=== PATIENT | female | born 1990 | race Caucasian/White ===

== ENCOUNTER 2022-03-27 17:22 | Observation (INO) ==
[2022-03-27] MEDS ORDERED: IOPAMIDOL 100 ML BOTTLE IV ONE (17:23)
[2022-03-27] MEDS ORDERED: 0.9 % SODIUM CHLORIDE 1,000 ML IV ONE (17:29)
--- NOTE | 2022-03-27 17:29 | Emergency Department Note ---
Abdominal Pain HPI General Chief Complaint: Abdominal Pain Stated Complaint: Stomach Pain Time Seen by Provider: 03/27/22 17:28 Source: patient Mode of arrival: ambulatory Limitations: no limitations History of Present Illness HPI Narrative: Narrative: Patient is a 32-year-old female that presents to the emergency department today with complaint of sharp stabbing pain to the right lower quadrant that started this morning at 7 AM and woke her up from sleep. She thought she may have needed to have a bowel movement as she typically has a bowel movement every other day. She took some laxatives and had a small brown bowel movement that was soft. She does not feel that she is constipated as she continued to have pain. She has felt mild nausea which she feels is aggravated with the increased pain. Pain is aggravated with ambulating, and jumping. She felt very sweaty at home but is not sure if she has had a fever. She has had some loss of appetite today. She denies any chest pain, shortness of breath, cough, vomiting, melena, hematochezia, or diarrhea. She currently has a Mirena IUD and has not had a menstrual cycle since the IUD was placed. She denies any vaginal discharge or dyspareunia. She is and in a monogamous relationship. Related Data Home Medications Medication Instructions Recorded Confirmed buspirone 10 mg tablet 10 mg PO BID 11/15/21 11/15/21 fluoxetine 40 mg capsule (Prozac) 40 mg PO QDAY 11/15/21 11/15/21 Allergies Allergy/AdvReac Type Severity Reaction Status Date / Time Erythromycin Base AdvReac Unknown Unknown Verified 03/27/22 17:27 Review of Systems ROS ROS Narrative: Narrative: All systems ED: reviewed and negative except as stated. [facility] Narrative Patient History Narrative: Narrative: Medical/Surgical/Family History All Active Problems (Updated 03/27/22 @ 18:58 by SHELBI Brown) Acute appendicitis (Acute) Urinary tract infection (Acute) Dysuria (Acute) Cholelithiasis and cholecystitis with obstruction (Acute) Abdominal pain (Acute) Back pain (Chronic) Depression (Chronic) Anemia (Chronic) Bronchitis (Chronic) Medical History (Updated 03/27/22 @ 18:58 by SHELBI Brown) Anemia Back pain Bronchitis Depression Dysuria Urinary tract infection Surgical History History of laparoscopic cholecystectomy 05/08/2020 Family History Mother Diabetes Stroke Family/Other Hypertension Breast cancer Grandmother Cervical cancer Social History Smoking Status: Never smoker Alcohol Intake Frequency: holiday/special occasion only Substance Use: does not use Exam Narrative Narrative: Narrative: General Limitations: no limitations General appearance: Present alert and in no apparent distress Head Head: Present atraumatic, normocephalic and normal inspection Eye Eye: Present normal appearance; Absent scleral icterus ENT ENT: Present normal oropharynx and mucous membranes moist Neck Neck: Present full ROM Chest Chest: Present symmetric chest wall rise Respiratory Respiratory: Present normal lung sounds bilaterally; Absent respiratory distress, rales/crackles or accessory muscle use Cardiovascular Cardiovascular: Present normal rhythm, tachycardia and normal heart sounds Adbominal Abdominal: Present soft, tenderness (Right lower quadrant abdominal tenderness with palpation.), normal bowel sounds, psoas sign, obturator sign, heel tap sign and tenderness at McBurney's Point; Absent distention, rebound, Dang's sign, mass or hernia Extremities Extremities: Present normal inspection and normal capillary refill Neurological Neurological: Present alert and oriented X3 Psychiatric Psychiatric: Present anxious Skin Skin: Present warm (WNL), dry and normal color Course Vital Signs Vital signs: Vital Signs Temperature 98.0 F 03/27/22 17:25 Pulse Rate 123 H 03/27/22 17:25 Respiratory Rate 16 03/27/22 17:25 Blood Pressure 121/74 03/27/22 17:25 Pulse Oximetry (%) 97 03/27/22 17:25 Oxygen Delivery Method 03/27/22 17:25 Temperature 98.0 F 03/27/22 17:25 Pulse Rate 93 H 03/27/22 19:07 Respiratory Rate 16 03/27/22 17:25 Blood Pressure 115/88 03/27/22 18:46 Pulse Oximetry (%) 95 03/27/22 19:07 Oxygen Delivery Method 03/27/22 17:25 [facility] MDM Narrative Medical decision making narrative: Narrative: 32-year-old female presented the emergency department with right lower quadrant abdominal pain that started this morning at 7 AM and woke her up. She has findings on examination of acute appendicitis started today and proceeded with obtaining a CBC, CMP, noylg-co-kzii creatinine, and elected to proceed with abdominal and pelvis CT scan with contrast. An IV was started and 1 L normal sa line was being administered. She did have tachycardia here on arrival to the emergency department but is afebrile. Patient had negative hCG test. She was given 1 mg of Dilaudid and 4 mg of ondansetron today prior to her CT scan. The CT was read by direct radiology that shows appendix that is distended with periappendiceal fat stranding. The appendix measures up to 9 mm. Acute appendicitis without complication is noted. Patient's white count had returned and is currently 18.9. Lactic acid blood culture ordered as well as Zosyn 3.375 IV dose to be administered. I was able to talk with general surgeon today, Dr. Nleson who is on-call for [facility]. Dr. Nelson agrees to admit patient for observation and will plan on giving antibiotic and likely surgery in the morning. Patient's tachycardia had started to resolve and after 1 L normal saline pulse was 93. Patient's pain was well controlled. She will be admitted to [facility] observation in [facility]. Lab Data Result diagrams: 03/27/22 17:40 03/27/22 17:40 Labs: Lab Results 03/27/22 03/27/22 03/27/22 Range/Units 17:40 17:40 17:48 WBC 18.9 H (4.5-11.0) K/mcL RBC 4.79 (3.59-5.38) M/mcL Hgb 14.5 (11.2-15.7) g/dL Hct 41.1 (34.1-44.9) % MCV 85.8 (80.0-100.0) fL MCH 30.3 (26.0-34.0) pg MCHC 35.3 (31.0-36.0) g/dL RDW 12.3 (11.5-14.5) % Plt Count 557 H (140-440) K/mcL MPV 8.5 L (8.8-12.5) fL Immature Gran % (Auto) 0.5 (0.0-0.5) % Neut % (Auto) 90.9 H (38.0-78.0) % Lymph % (Auto) 4.7 L (15.5-49.0) % [place] % (Auto) 3.6 (1.0-12.0) % Eos % (Auto) 0 (0.0-7.0) % Baso % (Auto) 0.3 (0.0-2.0) % Lymph # (Auto) 0.88 L (1.50-4.80) K/mcL [place] # (Auto) 0.67 (0.10-0.90) K/mcL Eos # (Auto) 0 (0.00-0.70) K/mcL Baso # (Auto) 0.06 (0.00-0.30) K/mcL Immature Gran # 0.09 H (0.00-0.05) K/mcl Absolute Neutrophils 17.15 H (1.80-8.00) K/mcL Sodium 130 L (133-145) mmol/L Potassium 3.5 (3.3-5.1) mmol/L Chloride 97 (96-108) mmol/L Carbon Dioxide 20 L (22-30) mmol/L Anion Gap 13.0 (8.0-16.0) BUN 5 L (6-20) mg/dL Creatinine 0.5 L (0.6-1.1) mg/dL POC Creatinine 0.5 L (0.6-1.2) GFR Calculation 129 Glucose 128 H (70-105) mg/dL Calcium 8.9 (8.6-10.4) mg/dL Total Bilirubin 0.7 (0.1-1.0) mg/dL AST 17 (<32) U/L ALT 18 (<40) U/L Alkaline Phosphatase 132 H (39-117) U/L Total Protein 7.9 (5.9-8.4) gm/dL Albumin 4.8 (3.2-5.2) gm/dL Globulin 3.1 (2.2-3.7) gm/dL Albumin/Globulin Ratio 1.5 (1.0-2.3) ED POC Tests ED POC Tests: HCG POC Results Negative Discharge Plan Patient/Caregiver Discharge Instructions Pt seen by ROAD PACKER OPERATOR/PA only: Yes Clinical Impression: Acute appendicitis Qualifiers: Acute appendicitis type: unspecified acute appendicitis type Qualified Code(s): K35.80 - Unspecified acute appendicitis Patient Disposition: Xfer As Outpt/Obs ([facility]) Follow up with: Otto Medina ARNP [Nurse Practitioner] - Prescriptions: No Action fluoxetine [Prozac] 40 mg capsule 40 mg PO QDAY buspirone 10 mg tablet 10 mg PO BID
[2022-03-27] MEDS ORDERED: HYDROmorphone 1 MG/ML SYRINGE IV ONE (17:46)
[2022-03-27] MEDS ORDERED: ONDANSETRON 4 MG/2 ML VIAL IV ONE (17:46)
[2022-03-27 18:14] LABS: Basophils # (Auto) 0.06 K/mcL (0.00-0.30); Basophils % (Auto) 0.3 % (0.0-2.0); Eosinophils # (Auto) 0 K/mcL (0.00-0.70); Eosinophils % (Auto) 0 % (0.0-7.0); Hematocrit 41.1 % (34.1-44.9); Hemoglobin 14.5 g/dL (11.2-15.7); Lymphocytes # (Auto) 0.88 K/mcL (1.50-4.80); Lymphocytes % (Auto) 4.7 % (15.5-49.0); Mean Cell Volume 85.8 fL (80.0-100.0); Mean Corpuscular HGB Conc 35.3 g/dL (31.0-36.0); Mean Platelet Volume 8.5 fL (8.8-12.5); Monocytes # (Auto) 0.67 K/mcL (0.10-0.90); Monocytes % (Auto) 3.6 % (1.0-12.0); Neutrophils % (Auto) 90.9 % (38.0-78.0); Platelet Count 557 K/mcL (140-440); RBC 4.79 M/mcL (3.59-5.38); Red Cell Distribution Width 12.3 % (11.5-14.5); WBC 18.9 K/mcL (4.5-11.0)
[2022-03-27 18:32] LABS: ALT/SGPT 18 U/L (<40); AST/SGOT 17 U/L (<32); Albumin 4.8 gm/dL (3.2-5.2); Albumin/Globulin Ratio 1.5 (1.0-2.3); Alkaline Phosphatase 132 U/L (39-117); Bilirubin,Total 0.7 mg/dL (0.1-1.0); Blood Urea Nitrogen 5 mg/dL (6-20); Calcium 8.9 mg/dL (8.6-10.4); Carbon Dioxide 20 mmol/L (22-30); Chloride 97 mmol/L (96-108); Globulin 3.1 gm/dL (2.2-3.7); Glomerular Filtration Rate 129; Glucose 128 mg/dL (70-105)
[2022-03-27] MEDS ORDERED: PIPERACILLIN SODIUM/TAZOBACTAM 3.375 GM in DEXTROSE 5% IN WATER 50 ML IV ONE (18:38)
[2022-03-27] MEDS ORDERED: PROMETHAZINE 25 MG/ML VIAL IV PRN (20:10)
[2022-03-27] MEDS ORDERED: PIPERACILLIN SODIUM/TAZOBACTAM 3.375 GM in DEXTROSE 5% IN WATER 50 ML IV SCH (20:15)
--- NOTE | 2022-03-27 20:16 | General Surg History&Physical ---
HPI History of Present Illness Patient information: Note initiated : 03/27/22 at 8:14 pm Service Date, if different from initiated Date: [] Patient: Qian Wing 32 y/o F admitted on 03/27/22 for Stomach Pain. Chief Complaint: [] History of present illness: Ms. Wing is a 32 year old F who was admitted with acute appendicitis. She awakened at 7 AM with mid abdominal pain followed by nausea vomiting fever and chills. This continued throughout the day and the pain localized to the right lower quadrant about 6 PM. She also noted discomfort with moving her right leg. She was seen in the emergency room and was noted to have leukocytosis of 18,700. CT of the abdomen shows dilated edematous appendix with Appendiceal tissue fluid. Patient is admitted with acute appendicitis. She will be treated with antibiotics and will have surgery in the morning. Review of Systems All systems: reviewed and no additional remarkable complaints except as stated PFSH PFSH All Active Problems Acute appendicitis (Acute) Urinary tract infection (Acute) Dysuria (Acute) Cholelithiasis and cholecystitis with obstruction (Acute) Abdominal pain (Acute) Back pain (Chronic) Depression (Chronic) Anemia (Chronic) Bronchitis (Chronic) Medical History Anemia Back pain Bronchitis Depression Dysuria Urinary tract infection Surgical History History of laparoscopic cholecystectomy 05/08/2020 Family History Mother Diabetes Stroke Family/Other Hypertension Breast cancer Grandmother Cervical cancer Social History marital status: smoking status: Never smoker alcohol intake frequency: holiday/special occasion only substance use type: does not use MEDS/ALLERGIES Home Medications and Allergies Allergies Allergy/AdvReac Type Severity Reaction Status Date / Time Erythromycin Base AdvReac Unknown Unknown Verified 03/27/22 17:27 Physical Examination Vital Signs Vital signs: Temp Pulse Resp BP Pulse Ox O2 Del Method 98.0 F 103 H 16 105/67 97 03/27/22 17:25 03/27/22 20:01 03/27/22 17:25 03/27/22 20:01 03/27/22 20:01 03/27/22 17:25 General physical appearance General physical exam: well developed, well nourished, moderate distress and moderate pain Eyes Eye exam: PERRL and normal ocular movement ENT ENT exam: normal mucosa, no hearing loss and no congestion Head Head exam IM: Present atraumatic, normal inspection and normocephalic Neck Neck exam: no masses, no bruits, trachea midline, no lymphadenopathy and no venous distension Cardiovascular Cardiovascular exam IM: Present normal rate and rhythm, RRR, +S1 and +S2; Absent diastolic murmur, JVD or systolic murmur Respiratory Respiratory exam: normal expansion, normal respiratory effort and clear to auscultation Abdomen Abdomen: Present tender (Right lower quadrant tenderness with guarding and rebound) Integumentary Integumentary: Present no rash, no growths and no abnormal pigmentation Neurologic Neurologic: Present normal coordination and normal sensation Musculoskeletal Musculoskeletal: Present normal gait and normal posture Psychiatric Psychiatric: Present oriented to time, oriented to person, oriented to place, speech is normal and memory intact Results Labs Result diagrams: 03/28/22 05:11 03/28/22 05:11 Labs: Abnormal lab results 03/27/22 03/27/22 03/27/22 Range/Units 17:40 17:40 17:48 WBC 18.9 H (4.5-11.0) K/mcL Plt Count 557 H (140-440) K/mcL MPV 8.5 L (8.8-12.5) fL Neut % (Auto) 90.9 H (38.0-78.0) % Lymph % (Auto) 4.7 L (15.5-49.0) % Lymph # (Auto) 0.88 L (1.50-4.80) K/mcL Immature Gran # 0.09 H (0.00-0.05) K/mcl Absolute Neutrophils 17.15 H (1.80-8.00) K/mcL POC VBG pCO2 at Temp (41-51) POC VBG pO2 (25-40) POC VBG HCO3 (24-28) POC VBG Total CO2 (25-29) POC Venous O2 Sat (40-70) POC VBG Base Excess (-2-2) Sodium 130 L (133-145) mmol/L Carbon Dioxide 20 L (22-30) mmol/L BUN 5 L (6-20) mg/dL Creatinine 0.5 L (0.6-1.1) mg/dL POC Creatinine 0.5 L (0.6-1.2) Glucose 128 H (70-105) mg/dL Alkaline Phosphatase 132 H (39-117) U/L 03/27/22 Range/Units 19:31 WBC (4.5-11.0) K/mcL Plt Count (140-440) K/mcL MPV (8.8-12.5) fL Neut % (Auto) (38.0-78.0) % Lymph % (Auto) (15.5-49.0) % Lymph # (Auto) (1.50-4.80) K/mcL Immature Gran # (0.00-0.05) K/mcl Absolute Neutrophils (1.80-8.00) K/mcL POC VBG pCO2 at Temp 37.1 L (41-51) POC VBG pO2 47 H (25-40) POC VBG HCO3 22.0 L (24-28) POC VBG Total CO2 23.0 L (25-29) POC Venous O2 Sat 82.0 H (40-70) POC VBG Base Excess -3.0 L (-2-2) Sodium (133-145) mmol/L Carbon Dioxide (22-30) mmol/L BUN (6-20) mg/dL Creatinine (0.6-1.1) mg/dL POC Creatinine (0.6-1.2) Glucose (70-105) mg/dL Alkaline Phosphatase (39-117) U/L Diabetes panel 03/27/22 Range/Units 17:40 Sodium 130 L (133-145) mmol/L Potassium 3.5 (3.3-5.1) mmol/L Chloride 97 (96-108) mmol/L Carbon Dioxide 20 L (22-30) mmol/L BUN 5 L (6-20) mg/dL Creatinine 0.5 L (0.6-1.1) mg/dL Glucose 128 H (70-105) mg/dL Calcium 8.9 (8.6-10.4) mg/dL AST 17 (<32) U/L ALT 18 (<40) U/L Alkaline Phosphatase 132 H (39-117) U/L Total Protein 7.9 (5.9-8.4) gm/dL Albumin 4.8 (3.2-5.2) gm/dL Calcium panel 03/27/22 Range/Units 17:40 Calcium 8.9 (8.6-10.4) mg/dL Albumin 4.8 (3.2-5.2) gm/dL Pituitary panel 03/27/22 Range/Units 17:40 Sodium 130 L (133-145) mmol/L Potassium 3.5 (3.3-5.1) mmol/L Chloride 97 (96-108) mmol/L Carbon Dioxide 20 L (22-30) mmol/L BUN 5 L (6-20) mg/dL Creatinine 0.5 L (0.6-1.1) mg/dL Glucose 128 H (70-105) mg/dL Calcium 8.9 (8.6-10.4) mg/dL Adrenal panel 03/27/22 Range/Units 17:40 Sodium 130 L (133-145) mmol/L Potassium 3.5 (3.3-5.1) mmol/L Chloride 97 (96-108) mmol/L Carbon Dioxide 20 L (22-30) mmol/L BUN 5 L (6-20) mg/dL Creatinine 0.5 L (0.6-1.1) mg/dL Glucose 128 H (70-105) mg/dL Calcium 8.9 (8.6-10.4) mg/dL Total Bilirubin 0.7 (0.1-1.0) mg/dL AST 17 (<32) U/L ALT 18 (<40) U/L Alkaline Phosphatase 132 H (39-117) U/L Total Protein 7.9 (5.9-8.4) gm/dL Albumin 4.8 (3.2-5.2) gm/dL All other labs normal. A/P Assessment and plan (1) Acute appendicitis: Status: Acute Qualifiers: Acute appendicitis type: unspecified acute appendicitis type Qualified Code(s): K35.80 - Unspecified acute appendicitis Plan ZOSYN 3.375GM IV Q6H NPO AFTER MIDNIGHT SCHEDULE APPENDECTOMY TO BE PERFORMED IN THE AM Sepsis Sepsis Identified: No Time Spent With Patient Time: Total time spent is greater than 50% in coordination of care (as documented) at patient's floor/unit and/or counseling patient:
[2022-03-27] MEDS: 0.9 % SODIUM CHLORIDE 1,000 ML IV SCH (20:30)
[2022-03-27] MEDS: ACETAMINOPHEN 1,000 MG/100 ML BAG IV SCH (20:30)
--- NOTE | 2022-03-27 20:42 | Cat Scan Report ---
INDICATION: RLQ abdominal pain. Concern of appendicitis COMPARISON: Previous examination dated 03/06/2020 TECHNIQUE: Axial images were obtained through the abdomen and pelvis. Sagittally and coronally reformatted images. 80 mL Isovue 370 injected intravenously. Oral contrast material was not administered FINDINGS: Examination was initially interpreted by [facility] Lung bases:Negative. No pulmonary parenchymal nodule. No pleural fluid or pericardial fluid Liver:Negative. No focal intrahepatic mass. No focal abnormality. Liver contour is smooth. No evidence for cirrhosis Gallbladder, bilary:Previous cholecystectomy. No dilated bile ducts Spleen:No splenomegaly. Normal enhancement of splenic and portal veins. Pancreas:No pancreatic mass. No peripancreatic abnormality Adrenal glands:Negative Kidneys,ureters,bladder:No solid renal mass. No hydronephrosis. No obstructing or nonobstructing calculi. No hydroureter. No ureteral calculus. No bladder stone. No detectable bladder mass. Gastrointestinal:No detectable colonic mass. There is no diverticulitis. Negative small bowel. No mechanical small bowel obstruction. No bowel wall thickening. No focal abnormality. Negative stomach and duodenum. No focal abnormality. Appendix: The appendix is distended and measures 10 mm in cross-sectional diameter. There is periappendiceal inflammatory change. There is no fluid or abscess. No free air. Appearance is consistent with acute appendicitis without evidence for ruptured appendix Vascular:Negative abdominal aorta. Superior mesenteric artery and celiac trunk are normal. Normal opacification of the inferior mesenteric artery Lymphatic:No retroperitoneal or mesenteric adenopathy Mesentery, peritoneum: No free intraperitoneal fluid. No mesenteric or retroperitoneal mass. No intra-abdominal abscess. Reproductive:Uterus is anteflexed. There is an intrauterine contraceptive device within the uterus. No adnexal mass Musculoskeletal:No lumbar compression fractures. Sacrum and pelvis are negative. No hip fracture. No abdominal wall or inguinal hernia IMPRESSION: 1. Acute appendicitis without evidence for rupture 2. Previous cholecystectomy The exam was performed using radiation dose optimization techniques including, but not limited to, automated exposure control, adjustment of the mA and/or kV according to patient size and use of iterative reconstruction technique. Interpreted and Authenticated by: Glen Triana 03/27/22
[2022-03-27] MEDS: 0.9 % SODIUM CHLORIDE 10 ML SYRINGE IV SCH (21:37)
[2022-03-27] MEDS: PIPERACILLIN SODIUM/TAZOBACTAM 3.375 GM in DEXTROSE 5% IN WATER 50 ML IV SCH (23:41)
[2022-03-27] MEDS: HYDROmorphone 0.5 MG/0.5 ML SYRINGE IV PRN (23:43)
[2022-03-28] MEDS: ACETAMINOPHEN 1,000 MG/100 ML BAG IV SCH ×3 (02:18→14:50)
[2022-03-28] MEDS: 0.9 % SODIUM CHLORIDE 10 ML SYRINGE IV SCH ×3 (05:12→22:15)
[2022-03-28] MEDS: 0.9 % SODIUM CHLORIDE 1,000 ML IV SCH ×4 (05:17→22:14)
[2022-03-28 05:50] LABS: Basophils # (Auto) 0.09 K/mcL (0.00-0.30); Basophils % (Auto) 0.8 % (0.0-2.0); Eosinophils # (Auto) 0.11 K/mcL (0.00-0.70); Hematocrit 35.8 % (34.1-44.9); Lymphocytes # (Auto) 2.82 K/mcL (1.50-4.80); Lymphocytes % (Auto) 24.8 % (15.5-49.0); Mean Cell Volume 89.7 fL (80.0-100.0); Mean Corpuscular HGB Conc 33.5 g/dL (31.0-36.0); Mean Platelet Volume 8.4 fL (8.8-12.5); Monocytes # (Auto) 0.77 K/mcL (0.10-0.90); Monocytes % (Auto) 6.8 % (1.0-12.0); Neutrophils % (Auto) 66.4 % (38.0-78.0); Platelet Count 428 K/mcL (140-440); RBC 3.99 M/mcL (3.59-5.38); Red Cell Distribution Width 12.6 % (11.5-14.5); WBC 11.4 K/mcL (4.5-11.0)
[2022-03-28] MEDS: PIPERACILLIN SODIUM/TAZOBACTAM 3.375 GM in DEXTROSE 5% IN WATER 50 ML IV SCH ×3 (05:53→17:53)
[2022-03-28 06:00] LABS: ALT/SGPT 19 U/L (<40); AST/SGOT 17 U/L (<32); Albumin 3.5 gm/dL (3.2-5.2); Albumin/Globulin Ratio 1.3 (1.0-2.3); Alkaline Phosphatase 94 U/L (39-117); Bilirubin,Direct 0.2 mg/dL (<0.3); Bilirubin,Total 0.9 mg/dL (0.1-1.0); Blood Urea Nitrogen 5 mg/dL (6-20); Calcium 8.4 mg/dL (8.6-10.4); Carbon Dioxide 22 mmol/L (22-30); Chloride 104 mmol/L (96-108); Globulin 2.6 gm/dL (2.2-3.7); Glomerular Filtration Rate 121; Glucose 106 mg/dL (70-105); Lactate Dehydrogenase 121 U/L (135-225); Phosphorous 3.2 mg/dL (2.5-4.5); Triglycerides 145 mg/dL (<150); Uric Acid 5.2 mg/dL (2.5-8.0)
[2022-03-28] MEDS: HYDROmorphone 0.5 MG/0.5 ML SYRINGE IV PRN ×4 (09:57→22:14)
[2022-03-28] MEDS: ONDANSETRON 4 MG/2 ML VIAL IV PRN ×2 (10:00→16:01)
[2022-03-28] MEDS ORDERED: SCOPOLAMINE 1 PATCH PATCH TOPICAL PRN (10:07)
[2022-03-28] MEDS ORDERED: LIDOCAINE HCL/PF 100 MG/5 ML SYRINGE IV ONE (13:35)
[2022-03-28] MEDS ORDERED: fentaNYL 100 MCG/2 ML VIAL IV ONE (13:35)
[2022-03-28] MEDS ORDERED: DEXAMETHASONE 10 MG/ML VIAL ONE (13:35)
[2022-03-28] MEDS ORDERED: SUCCINYLCHOLINE 20 MG/ML ML IV ONE (13:35)
[2022-03-28] MEDS ORDERED: ROCURONIUM 10 MG/ML ML IV ONE (13:35)
[2022-03-28] MEDS ORDERED: PROPOFOL 200 MG/20 ML VIAL IV ONE (13:35)
[2022-03-28] MEDS ORDERED: MAGNESIUM SULFATE 2 GM/50 ML BAG IV ONE (13:35)
[2022-03-28] MEDS ORDERED: SUGAMMADEX SODIUM 200 MG/2 ML VIAL IV ONE (13:35)
[2022-03-28] MEDS ORDERED: ONDANSETRON 4 MG/2 ML VIAL ONE (13:35)
[2022-03-28] MEDS ORDERED: MIDAZOLAM 5 MG/5 ML VIAL ONE (13:35)
[2022-03-28] MEDS ORDERED: PROMETHAZINE 25 MG/ML VIAL IV PRN (14:17)
[2022-03-28] MEDS ORDERED: KETOROLAC 30 MG/ML VIAL IV PRN (14:17)
[2022-03-28] MEDS ORDERED: ACETAMINOPHEN 1,000 MG/100 ML BAG IV ONE (14:17)
[2022-03-28] MEDS ORDERED: IPRATROPIUM/ALBUTEROL 3 ML AMPUL.NEB NEB PRN (14:17)
[2022-03-28] MEDS ORDERED: LACTATED RINGERS 250 ML IV PRN (14:17)
[2022-03-28] MEDS ORDERED: HYDROmorphone 0.5 MG/0.5 ML SYRINGE IV PRN (14:17)
[2022-03-28] MEDS ORDERED: fentaNYL 100 MCG/2 ML VIAL IV PRN (14:17)
[2022-03-28] MEDS ORDERED: PROMETHAZINE 25 MG/ML VIAL IM PRN (14:17)
[2022-03-28] MEDS ORDERED: NALOXONE HCL 0.4 MG/ML VIAL IV PRN (14:17)
[2022-03-28] MEDS ORDERED: MEPERIDINE 25 MG/ML VIAL IV PRN (14:17)
[2022-03-28] MEDS ORDERED: ONDANSETRON 4 MG/2 ML VIAL IV PRN (14:17)
[2022-03-28] MEDS ORDERED: diphenhydrAMINE 50 MG/ML VIAL IV PRN (14:17)
[2022-03-28] MEDS ORDERED: LACTATED RINGERS 1,000 ML IV SCH (14:30)
--- NOTE | 2022-03-28 14:33 | Brief Operative Note ---
Brief Operative Note Date of procedure: 03/28/22 Pre-op diagnosis: acute appendicitis Post-op diagnosis: other (acute appendicitis) Procedure: LAPAROSCOPIC APPENDECTOMY Grafts/Implants: No Anesthesia: GETA Findings: ACUTE SUPPURATIVE APPENDICITIS Complications: none Surgeon: Bhanu Nelson Estimated blood loss (cc): 5 Specimens Removed/Pathology: other (APPENDIX) Condition: stable Disposition: PACU
[2022-03-29] MEDS: 0.9 % SODIUM CHLORIDE 1,000 ML IV SCH ×2 (02:30→11:11)
[2022-03-29] MEDS: HYDROmorphone 0.5 MG/0.5 ML SYRINGE IV PRN ×3 (03:09→15:51)
[2022-03-29] MEDS: 0.9 % SODIUM CHLORIDE 10 ML SYRINGE IV SCH ×2 (06:32→12:10)
[2022-03-29] MEDS: PIPERACILLIN SODIUM/TAZOBACTAM 3.375 GM in DEXTROSE 5% IN WATER 50 ML IV SCH ×3 (06:32→11:29)
[2022-03-29 07:28] LABS: Basophils # (Auto) 0.01 K/mcL (0.00-0.30); Basophils % (Auto) 0.1 % (0.0-2.0); Eosinophils # (Auto) 0 K/mcL (0.00-0.70); Eosinophils % (Auto) 0 % (0.0-7.0); Hematocrit 35.5 % (34.1-44.9); Hemoglobin 11.6 g/dL (11.2-15.7); Lymphocytes # (Auto) 1.25 K/mcL (1.50-4.80); Lymphocytes % (Auto) 14.8 % (15.5-49.0); Mean Cell Volume 90.6 fL (80.0-100.0); Mean Corpuscular HGB Conc 32.7 g/dL (31.0-36.0); Mean Platelet Volume 9.1 fL (8.8-12.5); Monocytes # (Auto) 0.39 K/mcL (0.10-0.90); Monocytes % (Auto) 4.6 % (1.0-12.0); Neutrophils % (Auto) 80.1 % (38.0-78.0); Platelet Count 455 K/mcL (140-440); RBC 3.92 M/mcL (3.59-5.38); Red Cell Distribution Width 12.6 % (11.5-14.5); WBC 8.4 K/mcL (4.5-11.0)
[2022-03-29] MEDS ORDERED: FLU VACC QS2022-23(6MOS UP)/PF 60 MCG/0.5 ML SYRINGE IM ONE (10:00)
--- NOTE | 2022-03-29 12:44 | Discharge Summary ---
Discharge Provider Provider IMPORTANT FOLLOW-UP INFORMATION FOR PCP: Patient information: Note initiated : 03/29/22 at 12:39 pm Service Date, if different from initiated Date: [] Patient: Qian Wing 32 y/o F admitted on 03/27/22 for Stomach Pain. Chief Complaint: [] Date of admission: 03/27/22 20:07 Discharge date: 03/29/22 Primary care physician: Enma Mark NP Admitting clinician: Bhanu Nelson Attending physician on admission: Bhanu Nelson Consults: 03/28/22 06:55 Consult to Physician [CONS] Routine Comment: Consulting Provider: Bhanu Nelson Reason For Exam: Physician to Consult Attending physician on discharge: Bhanu Nelson Discharging clinician: Bhanu Nelson COURSE Hospital Course Hospital course: 32-year-old female admitted on 27 March with acute appendicitis. She underwent laparoscopic appendectomy on 28 March. She was found to have acute suppurative appendicitis. Her surgery proceeded uneventfully. She is stable. She had mild nausea last evening x1 but is tolerating a diet since that time. She has good bowel tones and is passing flatus. Her incisions look good. White blood count 8.4, hemoglobin 11.6, hematocrit 35.5, potassium 3.1, BUN 5, creatinine 0.6. Patient is clinically stable and is discharged home in satisfactory condition. Discharge diagnosis: Acute appendicitis Reason for admission: Acute appendicitis Procedures: Laparoscopic appendectomy Pertinent studies/significant findings: CT of abdomen and pelvis with IV contrast Complications: None Time Spent with Patient Time attestation: Total time spent providing and/or coordinating discharge services: Time spent: Less than 30 minutes Physical Examination Vital Signs Vital signs: Temp Pulse Resp BP Pulse Ox O2 Del Method O2 Flow Rate 98.2 F 87 16 103/62 92 2 03/29/22 07:58 03/29/22 07:58 03/29/22 07:58 03/29/22 07:58 03/29/22 07:58 03/29/22 07:58 03/28/22 18:58 General physical appearance General physical exam: well developed, well nourished, no distress and moderate pain Eyes Eye exam: PERRL and normal ocular movement ENT ENT exam: normal mucosa and no hearing loss Head Head exam IM: Present atraumatic, normal inspection and normocephalic Neck Neck exam: no masses, no bruits, trachea midline, no lymphadenopathy and no venous distension Cardiovascular Cardiovascular exam IM: Present normal rate and rhythm, RRR, +S1 and +S2; Absent JVD Respiratory Respiratory exam: normal expansion, normal respiratory effort and clear to auscultation Abdomen Abdomen: Present tender (Mild tenderness around port sites) and bowel sounds (Normal active bowel sounds) Integumentary Integumentary: Present no rash, no growths and no abnormal pigmentation Neurologic Neurologic: Present normal coordination and normal sensation Musculoskeletal Musculoskeletal: Present normal gait and normal posture Psychiatric Psychiatric: Present oriented to time, oriented to person, oriented to place, speech is normal and memory intact Discharge Plan Patient/Caregiver Discharge Instructions Activity: increase activity as tolerated Diet: Regular Diet Prescriptions: New oxycodone-acetaminophen [Endocet] 10-325 mg tablet 1 tab PO Q4H PRN (Reason: Pain) Qty: 30 0RF promethazine 25 mg tablet 25 mg PO Q4H PRN (Reason: Nausea) Qty: 20 0RF Prescription drug monitoring program results: PDMP not reviewed Follow Up Plan Follow up with: Otto Medina ARNP [Nurse Practitioner] - Patient Disposition: Home, Self-Care Prognosis: Good Rehab Potential: Good I certify that the patient requires SNF services: No Overall status at discharge: patient is progressing back to baseline Discharge Orders: Discharge Order (Routine); Ordered 03/29/22 Ordered By: Bhanu Nelson Pending Pending Pending: Resuscitation Status Resuscitate (Full Code) Diet Regular Diet Start MonMar 29 0800 Hydromorphone HCl (Hydromorphone 0.5 Mg/0.5 Ml Syringe) 1 mg IV Q2HP PRN; Protocol PRN Reason: Per Pain Protocol Last Admin: 03/29/22 11:10 Dose: 1 mg Documented By: Admin: 03/29/22 03:09 Dose: 1 mg Documented By: Admin: 03/28/22 22:14 Dose: 1 mg Documented By: Admin: 03/28/22 17:53 Dose: 1 mg Documented By: Admin: 03/28/22 16:01 Dose: 1 mg Documented By: BLADIMIR Sodium Chloride (Sodium Chloride 0.9%) 1,000 mls @ 100 mls/hr IV .Q10H DIGNA Last Admin: 03/29/22 11:11 Dose: 100 mls/hr Documented By: Infusion: 03/29/22 08:14 Dose: 100 mls/hr Documented By: Admin: 03/29/22 02:30 Dose: Not Given Documented By: [email or web address] Admin: 03/28/22 22:14 Dose: 100 mls/hr Documented By: [email or web address] Admin: 03/28/22 16:06 Dose: Not Given Documented By: Infusion: 03/28/22 16:05 Dose: 100 mls/hr Documented By: Admin: 03/28/22 07:45 Dose: 100 mls/hr Documented By: Infusion: 03/28/22 06:30 Dose: 100 mls/hr Documented By: Admin: 03/28/22 05:17 Dose: Not Given Documented By: Admin: 03/27/22 20:30 Dose: 100 mls/hr Documented By: [email or web address] Piperacillin Sod/Tazobactam (Sod 3.375 gm/ Dextrose) 50 mls @ 100 mls/hr IV Q6H DIGNA; Protocol Last Infusion: 03/29/22 11:59 Dose: 0 mls/hr Documented By: Admin: 03/29/22 11:29 Dose: 100 mls/hr Documented By: Infusion: 03/29/22 07:00 Dose: 0 mls/hr Documented By: Admin: 03/29/22 06:32 Dose: 100 mls/hr Documented By: Infusion: 03/29/22 00:30 Dose: 100 mls/hr Documented By: [email or web address] Admin: 03/29/22 00:00 Dose: 100 mls/hr Documented By: [email or web address] Infusion: 03/28/22 18:23 Dose: 100 mls/hr Documented By: [email or web address] Admin: 03/28/22 17:53 Dose: 100 mls/hr Documented By: Infusion: 03/28/22 12:58 Dose: 0 mls/hr Documented By: Admin: 03/28/22 12:18 Dose: 100 mls/hr Documented By: Infusion: 03/28/22 08:44 Dose: 0 mls/hr Documented By: Admin: 03/28/22 05:53 Dose: 100 mls/hr Documented By: Infusion: 03/28/22 00:15 Dose: 0 mls/hr Documented By: Admin: 03/27/22 23:41 Dose: 100 mls/hr Documented By: RA Ondansetron HCl (Ondansetron 4 Mg/2 Ml Vial) 4 mg IV Q4HP PRN; Protocol PRN Reason: Nausea And Vomiting Last Admin: 03/28/22 16:01 Dose: 4 mg Documented By: Admin: 03/28/22 10:00 Dose: 4 mg Documented By: BLADIMIR Promethazine HCl (Promethazine 25 Mg/Ml Vial) 12.5 mg IV Q4HP PRN; Protocol PRN Reason: Nausea/Vomiting Last Admin: 03/28/22 12:24 Dose: 12.5 mg Documented By: BLADIMIR Sodium Chloride (0.9 % Sodium Chloride 10 Ml Syringe) 10 ml IV Q8 DIGNA Last Admin: 03/29/22 12:10 Dose: Not Given Documented By: Admin: 03/29/22 06:32 Dose: Not Given Documented By: Admin: 03/28/22 22:15 Dose: Not Given Documented By: Admin: 03/28/22 16:05 Dose: 10 ml Documented By: Admin: 03/28/22 05:12 Dose: Not Given Documented By: Admin: 03/27/22 21:37 Dose: Not Given Documented By: RA Shift Summary 03/29/22 04:36 Shift Summary by Ninoska Castro Admitted 03/27 for appendicitis. Lap appy done 03/28. Dressings to abd (gauze under tegaderm) CDI. Dilaudid controlling pain. Would like to get on PO meds today to be sure they work well. Up w/SBA to BR, voiding well, QS. Will d/c home, likely today. Initialized on 03/29/22 04:36 - END OF NOTE
--- NOTE | 2022-03-29 13:59 | Operative Note ---
DATE OF OPERATION: 03/28/2022 PREOPERATIVE DIAGNOSIS: Acute appendicitis. POSTOPERATIVE DIAGNOSIS: Acute appendicitis. PROCEDURE: Laparoscopic appendectomy. SURGEON: Bhanu Nelson M.D. FINDINGS: Acute suppurative appendicitis. DESCRIPTION OF PROCEDURE: Under general anesthesia, the patient's abdomen was prepped and draped in a sterile field. A timeout procedure was carried out as per protocol. Supraumbilical midline incision was made. Veress needle was inserted uneventfully. Abdomen was insufflated with 3 liters of CO2. A 12 mm port was placed. Laparoscope was placed. Under videoscopic guidance, a 5 mm port was placed in the suprapubic midline and a 12 mm port in the left lower quadrant. The patient was placed in deep Trendelenburg position and rotated to the left. The appendix was identified and was grasped. A window was made at the base of the appendix and the mesoappendix. The base of the appendix was transected using Endo FEROZ stapler. The mesoappendix was transected using Endo FEROZ stapler. The appendix was placed in an Endopouch and retrieved. Irrigation was carried out. A small amount of bleeding from the staple line in the mesoappendix was controlled with electrocautery. Irrigation of the appendiceal bed and the deep pelvis was carried out until the fluid was clear. CO2 was allowed to escape from the abdomen and the ports were removed. The fascia at the umbilicus was closed with 0 Vicryl. Skin incisions were closed with kit. Tegaderm dressings were placed. The patient tolerated the procedure well. She was awakened and transferred to the postanesthetic care unit in satisfactory condition. LCS:nisha Job ID: [id number] Doc ID: [id number] Bhanu Nelson M.D.
== END 2022-03-29 16:05 | disposition home or self-care (01) ==
LOC: ED 17:22 → MEDSUR 17:22
PROVIDERS: ADMIT Family Medicine Adult Medicine; ATTEND Family Medicine Adult Medicine